=== PATIENT | male | born 1980 | race Hispanic/Latino ===

== ENCOUNTER 2024-09-30 10:38 | Emergency (ER) | payer OTHER ==
[~2024-09-30] VITALS: Ht 167.6 cm; Wt 107.5 kg
[2024-09-30] MEDS: cefTRIAXone 1G VIAL IM ONE (11:19)
[2024-09-30] MEDS: DIPH,PERTUSS(ACELL),TET VAC/PF 0.5 ML VIAL IM ONE (11:21)
[2024-09-30] MEDS: OCTYL 2-CYANOACRYLATE 1 EACH TP ONE (11:22)
--- NOTE | 2024-09-30 12:15 | NUR ---
lac repair to wrist dermabond minor lac clean dry and intact cleaned as md requested and puncture wound flushed as directed both wounds bandaged with nonadhesive bandage
--- NOTE | 2024-09-30 12:25 | HMCIMG ---
FOOT COMP 3+VWS RT HISTORY: Puncture wound COMPARISON: None TECHNIQUE: 3 images of right foot were obtained. FINDINGS: There is a calcaneal spur. Vascular calcifications are seen. No definite radiopaque foreign body is seen. There is no acute displaced fracture or dislocation. Degenerative changes are seen. IMPRESSION: 1. Findings as described above.
[2024-09-30] MEDS ORDERED: CEPH500B PO (12:54)
--- NOTE | 2024-09-30 12:55 | ERN ---
General Chief Complaint: Laceration/Avulsion Stated Complaint: LACERATION TO LEFT PALM AND WRIST Time Seen by MD: 10:39 Source: patient, family History of Present Illness Initial Comments Patient is a 44-year-old male coming in for multiple complaints. Per patient he has a laceration on the left wrist secondary to slab grinder. He also states he stepped on a nail in his right foot. No fever or chills. Allergies: Coded Allergies: No Known Allergies (Unverified Allergy, Unknown, 09/30/24) Past Medical History Past Medical History: Hypertension Past Surgical History: None ROS Dictation CONSTITUTIONAL: No chills, no fever, no weakness, no diaphoresis, no malaise. HEAD/FACE: No signs of trauma. EENT: No eye pain, no blurred vision, no tearing, no double vision, no ear pain, no ear discharge, no nose pain, no nasal congestion, no throat pain, no throat swelling, no mouth pain. RESPIRATORY: No cough, no orthopnea, no SOB, no stridor, no wheezing. CARDIOVASCULAR: No chest pain, no edema, no palpitations, no syncope. GASTROINTESTINAL/ABDOMINAL: No abdominal pain, no constipation, no diarrhea, no nausea, no vomiting. GENITOURINARY: No abnormal discharge, no dysuria, no frequent urination, no hematuria. No complaints of pain in the genitals. MUSCULOSKELETAL: No back pain, no gout, no joint pain, no joint swelling, no muscle pain, no muscle stiffness, no neck pain. INTEGUMENTARY: No change in color, no change in hair/nails, no dryness, lesion, no lumps, no rash. NEUROLOGICAL/PSYCH: No anxiety, not depressed, no emotional problem, no headache, no numbness, no pre-existing deficit, no history of seizures, no tremors, no weakness. HEMATOLOGIC/LYMPHATIC: Not anemic, no history of blood clots, no apparent bleeding, no bruising, glands not swollen. All Systems Negative, Except as Noted. Physical Exam Physical Exam Dictation VITAL SIGNS: Reviewed. GENERAL APPEARANCE: Alert, oriented x3, no acute distress, obese. HEAD AND FACE: Non-traumatic. EYES: PERRL, pink conjunctivas, eyelid no trauma, anterior chamber clear. EARS: Pinnas intact and no signs of trauma or erythema. Ear canals clear and no discharge. TMs no erythema. NOSE: No discharge, no bleeding. OROPHARYNX: Mouth normal, teeth no caries, tongue pink. Pharynx clear, no erythema. Tonsils no exudates, no abscesses noted. Mucous membrane moist. NECK: Supple, non-tender, no thyromegaly, no masses, no JVD, no bruits. BREAST: Deferred. CHEST: No tenderness, no crepitus, no paradoxical movement, no retractions. LUNGS: Clear, well-ventilated, symmetric, no rales, no wheezing, no rhonchi, no stridor, good breath sounds bilaterally. HEART: Regular rate, regular rhythm, no murmur, no gallops. VASCULAR: No peripheral edema. ABDOMEN: Soft, positive bowel sounds, nondistended, no guarding, nontender, no rebound, no masses no hepatomegaly, no splenomegaly, no Thompson's sign, no hernias. RECTAL: Deferred. GENITAL: Deferred. NEUROLOGICAL: Normal speech, gross motor function intact, gross sensory function intact. MUSCULOSKELETAL: Neck nontender, full range of motion, back nontender, full range of motion. EXTREMITIES: Nontender, full range of motion. SKIN: Color pink, dry, no turgor, no rash, 1 cm lacerations on the left wrist, no abrasions, no contusions. LYMPHATICS: Deferred. Results Laboratory and Microbiology Labs Reviewed?: Yes EKG/XRAY/US/CT/MRI X-RAY Comment IMAGING REPORT Signed PATIENT: LESTER SHARPE MR#: [id number] : 1980 SEX: M AGE: 44 LOCATION: [facility] ORDER [id number] STATUS: REG REPORT#: [id number] SERVICE [id number] REASON: nail injury ORDERING PHYSICIAN: GERMAINE GARCIA MD PROCEDURE: FT 3VW RT - FOOT COMP 3+VWS RT FOOT COMP 3+VWS RT HISTORY: Puncture wound COMPARISON: None TECHNIQUE: 3 images of right foot were obtained. FINDINGS: There is a calcaneal spur. Vascular calcifications are seen. No definite radiopaque foreign body is seen. There is no acute displaced fracture or dislocation. Degenerative changes are seen. IMPRESSION: 1. Findings as described above. DICTATED BY: CHELSEY DUKE MD DATE: 09/30/24 122 ELECTRONICALLY SIGNED BY: CHELSEY DUKE MD DATE: 09/30/24 122 [facility] MDM: Differential diagnosis: Nail puncture, skin abrasion, skin laceration, Patient is a 44-year-old male coming in to be evaluated for multiple complaints. Patient states that he accidentally it of the slab grinder with his left wrist cause a mild abrasion approximating on its own. Patient's laceration was repaired with Dermabond. Patient tolerated procedure well. Right foot nail puncture was irrigated x-ray did not show acute findings. Patient will be discharged with that as well. Patient received a Tdap and will be going home with antibiotics and pain management. ED Course Orders Procedure Category Date Status Time Diph,Pertuss(Acell),Tet PHA 09/30/24 Complete Vac/Pf (Tdap) 11:00 Ceftriaxone 1g Vial PHA 09/30/24 Complete (Rocephine 1g Inj) 11:00 Dermabond (Dermabond) PHA 09/30/24 Complete 11:18 Foot Comp 3+Vws Rt RAD 09/30/24 Resulted 10:56 Current Medications Medications (Trade) Dose Ordered Sig/Safia Route PRN Reason Start Time Stop Time Status Last Admin Dose Admin Ceftriaxone Sodium (ROCEphine 1G INJ) 1 gm ONCE ONCE IM 09/30/24 11:00 09/30/24 11:05 DC 09/30/24 11:19 Diphtheria/ Tetanus/Acell Pertussis (Tdap) 0.5 ml ONCE ONCE IM 09/30/24 11:00 09/30/24 11:12 DC 09/30/24 11:21 Octyl Cyanoacrylate (Dermabond) 1 each STK-MED ONCE TP 09/30/24 11:18 09/30/24 11:19 DC 09/30/24 11:22 Vital Signs Date Time Temp Pulse Resp B/P (MAP) Pulse Ox O2 Delivery O2 Flow Rate FiO2 09/30/24 11:11 98.1 96 16 120/80 98 Room Air* 0 21 09/30/24 10:57 97.9 103 16 120/83 96 Room Air 0 Laceration/Wound Repair Laceration/Wound Repair : Wound Location: upper extremity Wound Length (cm): 1 Wound's Depth, Shape: superficial Wound Explored: clean Irrigated w/ Saline (ccs): 100 Betadine Prep?: Yes Wound Repaired With: Dermabond DX & DISP Disposition: Discharge Departure Impression: Primary Impression: Wrist laceration Additional Impression: Puncture wound of right foot Condition: Stable Scripts Cephalexin Monohydrate (Keflex) 500 Mg Cap 1 CAP PO TID for 10 Days, #30 CAP 0 Refills Prov: GERMAINE GARCIA MD 09/30/24 Additional Instructions: FOLLOW-UP WITH PRIMARY CARE PROVIDER IN 1 TO 2 DAYS. TAKE MEDICATIONS DIRECTED HERE IN THE EMERGENCY ROOM. OKAY TO CONTINUE HOME MEDICATIONS UNLESS OTHERWISE DISCUSSED DURING YOUR VISIT IN THE EMERGENCY ROOM TODAY. RETURN TO YOUR NEAREST EMERGENCY ROOM IF SYMPTOMS WORSEN OR IF THERE IS NO IMPROVEMENT. CALL 911 IF YOU NEED IMMEDIATE ASSISTANCE. TAKE TYLENOL [id number] NEEDED AND IF NO CONTRAINDICATIONS ARE PRESENT. INCREASE ORAL HYDRATION. A WOUND CULTURE OR URINE CULTURE WAS ORDERED HERE IN THE EMERGENCY ROOM DEPARTMENT PLEASE FOLLOW-UP WITH PRIMARY CARE PROVIDER AND ADVISE THEM TO GET REPEAT PORTS FROM OUR FACILITY. IF YOU HAD ANY LADY WRAP/SPLINTS THAT WERE APPLIED HERE, PLEASE DO NOT REMOVE THEM UNTIL YOU SEE YOUR PRIMARY CARE OR SPECIALTY. Referrals: Referrals: NONE (PCP) LYLA RODRIGUEZ MD Time of Disposition: 12:54 GERMAINE GARCIA MD Sep 30, 2024 12:55
[2024-09-30 12:56] VITALS: BP 120/65; PULSE 92; RESP 16; TEMP 98.3; O2SAT 98
== END 2024-09-30 13:02 | disposition home or self-care (01) ==
LOC: EDH 10:38
DX: S61.512A Laceration without foreign body of left wrist, initial encounter (principal); S91.331A Puncture wound without foreign body, right foot, initial encounter; I10 Essential (primary) hypertension; W45.0XXA Nail entering through skin, initial encounter; Y93.89 Activity, other specified; Y92.89 Other specified places as the place of occurrence of the external cause; Y99.8 Other external cause status
CPT/HCPCS: 99284; 90715; 73630; 96372; 90471; 12001; J0696